=== PATIENT | male | born 1975 | race Caucasian/White ===

== ENCOUNTER 2019-03-28 18:57 | Inpatient (IN) | payer BC ==
[~2019-03-28] VITALS: Ht 165.1 cm; Wt 69.9 kg
[2019-03-28 19:05] VITALS: BP_SYST 141
[2019-03-28 19:58] LABS: CALCIUM 9.1 mg/dL (8.4-11.0); CREATININE 0.9 mg/dL (0.55-1.30); POTASSIUM 4.3 mmol/L (3.5-5.1)
[2019-03-28 19:59] VITALS: BP_SYST 148
[2019-03-28 20:00] LABS: BASOPHILS % (AUTO) 0.3 % (0.0-2.0); EOSINOPHILS # (AUTO) 0.1 K/uL (0.0-0.4); EOSINOPHILS % (AUTO) 0.5 % (0.0-4.0); HEMATOCRIT 49.6 % (36-54); HEMOGLOBIN 17.2 g/dL (14.0-18.0); LYMPHOCYTES # (AUTO) 2.3 K/uL (1.0-5.5); LYMPHOCYTES % (AUTO) 20.4 % (20.5-51.5); MEAN CORPUSCULAR HEMOGLOBIN 32 pg (27-31); MEAN CORPUSCULAR HGB CONC 35 % (32-36); MEAN CORPUSCULAR VOLUME 93 fL (79.0-98.0); MONOCYTES # (AUTO) 0.9 K/uL (0.0-1.0); MONOCYTES % (AUTO) 7.8 % (1.7-9.3); NEUTROPHILS # (AUTO) 8.1 K/uL (1.8-7.7); PLATELET COUNT (AUTO) 220 K/uL (130-430); RED BLOOD CELL COUNT(AUTO) 5.35 MIL/uL (4.2-6.2); RED CELL DISTRIBUTION WIDTH 13.1 % (9.0-15.0); WHITE BLOOD COUNT (AUTO) 11.4 K/uL (4.8-10.8)
[2019-03-28 20:03] LABS: PROTHROMBIN TIME 10.3 SECS (9.5-12.5)
[2019-03-28 20:04] LABS: ALBUMIN 3.9 g/dL (3.4-4.8); TOTAL BILIRUBIN 1.5 mg/dL (0.0-1.0)
[2019-03-28 20:08] LABS: BILIRUBIN,URINE NEGATIVE (NEGATIVE); CLARITY/URINE CLEAR (CLEAR); COLOR,URINE YELLOW (YELLOW); GLUCOSE,URINE NEGATIVE (NEGATIVE); KETONES,URINE NEGATIVE (NEGATIVE); LEUKOCYTE ESTERASE ,URINE NEGATIVE (NEGATIVE); NITRITE, URINE NEGATIVE (NEGATIVE); PROTEIN URINE NEGATIVE (NEGATIVE); UROBILINOGEN,URINE 0.2 (0.2-1.0)
[2019-03-28 20:09] LABS: BLOOD, URINE TRACE (NEGATIVE)
[2019-03-28 20:38] LABS: BACTERIA,URINE FEW /HPF (None Seen); MUCUS,URINE None Seen /LPF (None Seen); RBC,URINE 0-3 /HPF (0-3); WBC,URINE 0-3 /HPF (0-3)
[2019-03-28] MEDS ORDERED: ONDANSETRON HCL 4 MG/2 ML VIAL IVP ONE (21:00)
[2019-03-28] MEDS ORDERED: MORPHINE 2 MG/ML INJ. SYRINGE IVP ONE (21:00)
[2019-03-28] MEDS: POTASSIUM CHLORIDE 10 MEQ in D5/0.45 NS 1,000 ML IV SCH (21:32)
[2019-03-28] MEDS ORDERED: MORPHINE 2 MG/ML INJ. SYRINGE IVP PRN (21:45)
[2019-03-28] MEDS ORDERED: ONDANSETRON HCL 4 MG/2 ML VIAL IVP PRN (21:45)
[2019-03-28] MEDS ORDERED: KCL 10 mEq in D5/0.45NS 1000mL 1,000 ML IV ONE (22:31)
[2019-03-28] MEDS: FAMOTIDINE PF 20 MG/2 ML VIAL IVP SCH (22:33)
[2019-03-28] MEDS ORDERED: LEVOFLOXACIN 500 MG/D5W 100 ML IV ONE (22:33)
[2019-03-28] MEDS: LEVOFLOXACIN 500 MG/D5W 100 ML IV SCH (22:34)
[2019-03-29 00:19] VITALS: BP_SYST 112
[2019-03-29 07:44] VITALS: BP_SYST 120
[2019-03-29] MEDS: POTASSIUM CHLORIDE 10 MEQ in D5/0.45 NS 1,000 ML IV SCH (12:47)
[2019-03-29 13:00] VITALS: BP_SYST 115
[2019-03-29 16:13] VITALS: BP_SYST 113
[2019-03-29] MEDS ORDERED: fentaNYL CITRATE/PF 100 MCG/2 ML AMP IVP PRN ×2 (18:45)
[2019-03-29] MEDS ORDERED: ONDANSETRON HCL 4 MG/2 ML VIAL IVP PRN (18:45)
[2019-03-29] MEDS ORDERED: KETOROLAC TROMETHAMINE 30 MG VIAL IVP PRN (18:45)
[2019-03-29] MEDS ORDERED: ACETAMINOPHEN 325 MG TABLET PO PRN (19:30)
[2019-03-29] MEDS ORDERED: fentaNYL CITRATE/PF 100 MCG/2 ML AMP ONE ×2 (19:35→20:00)
[2019-03-29] MEDS ORDERED: LR 1,000 ML IV.SOLN IV ONE (19:35)
[2019-03-29] MEDS ORDERED: MIDAZOLAM HCL 5 MG/ML VIAL (VERSED) IV ONE (19:35)
[2019-03-29] MEDS ORDERED: NEOSTIGMINE METHYLSULFATE 1 MG/ML, 10 ML VIAL ONE (19:35)
[2019-03-29] MEDS ORDERED: SEVOFLURANE 15 MIN GAS INH ONE (19:35)
[2019-03-29] MEDS ORDERED: ROCURONIUM BROMIDE 10 MG/ML (ZEMURON) ONE (19:35)
[2019-03-29] MEDS ORDERED: NS IRRIG SOLN 1000 ML IR ONE (19:35)
[2019-03-29] MEDS ORDERED: CEFAZOLIN 2 GM IVPB PREMIX 50 ML IV ONE (19:35)
[2019-03-29] MEDS ORDERED: GLYCOPYRROLATE 0.2 MG/ML VIAL ONE (19:35)
[2019-03-29] MEDS ORDERED: PROPOFOL 200MG/ 20ML VIAL (DIPRIVAN) IV ONE (19:35)
[2019-03-29 20:30] VITALS: BP_SYST 162
[2019-03-29] MEDS ORDERED: HYDROmorphone 1 MG INJ. 1 MG/ML AMPUL IVP PRN (20:45)
[2019-03-29] MEDS: FAMOTIDINE PF 20 MG/2 ML VIAL IVP SCH (21:33)
[2019-03-29] MEDS: MORPHINE 4 MG/ML INJ. SYRINGE IVP PRN ×2 (21:34→23:57)
[2019-03-29] MEDS: LEVOFLOXACIN 500 MG/D5W 100 ML IV SCH (21:35)
[2019-03-29 23:58] VITALS: BP_SYST 150
[2019-03-30] MEDS: POTASSIUM CHLORIDE 10 MEQ in D5/0.45 NS 1,000 ML IV SCH ×2 (01:27→14:21)
[2019-03-30 04:00] VITALS: BP_SYST 141
[2019-03-30] MEDS: MORPHINE 4 MG/ML INJ. SYRINGE IVP PRN ×3 (05:12→23:09)
[2019-03-30 06:31] LABS: BASOPHILS % (AUTO) 0.2 % (0.0-2.0); EOSINOPHILS % (AUTO) 0.4 % (0.0-4.0); HEMATOCRIT 46.5 % (36-54); HEMOGLOBIN 16.3 g/dL (14.0-18.0); LYMPHOCYTES # (AUTO) 1.9 K/uL (1.0-5.5); LYMPHOCYTES % (AUTO) 19.6 % (20.5-51.5); MEAN CORPUSCULAR HEMOGLOBIN 33 pg (27-31); MEAN CORPUSCULAR HGB CONC 35 % (32-36); MEAN CORPUSCULAR VOLUME 93 fL (79.0-98.0); MONOCYTES # (AUTO) 0.9 K/uL (0.0-1.0); MONOCYTES % (AUTO) 9.3 % (1.7-9.3); NEUTROPHILS # (AUTO) 6.9 K/uL (1.8-7.7); NEUTROPHILS % (AUTO) 70.5 % (40.0-70.0); PLATELET COUNT (AUTO) 205 K/uL (130-430); RED BLOOD CELL COUNT(AUTO) 5.01 MIL/uL (4.2-6.2); RED CELL DISTRIBUTION WIDTH 12.9 % (9.0-15.0); WHITE BLOOD COUNT (AUTO) 9.9 K/uL (4.8-10.8)
[2019-03-30 06:45] LABS: CALCIUM 8.6 mg/dL (8.4-11.0); CREATININE 0.91 mg/dL (0.55-1.30); POTASSIUM 3.8 mmol/L (3.5-5.1)
[2019-03-30 06:59] LABS: ALBUMIN 3.2 g/dL (3.4-4.8); TOTAL BILIRUBIN 1.6 mg/dL (0.0-1.0)
[2019-03-30 08:11] VITALS: BP_SYST 126
[2019-03-30 12:40] VITALS: BP_SYST 128
[2019-03-30] MEDS: HYDROcodone/ACETAMIN 5-325 MG TAB (NORCO/ VICODIN) PO PRN ×2 (14:30→20:22)
[2019-03-30 17:28] VITALS: BP_SYST 128
[2019-03-30 20:15] VITALS: BP_SYST 127
[2019-03-30] MEDS: FAMOTIDINE PF 20 MG/2 ML VIAL IVP SCH (21:18)
[2019-03-30] MEDS: LEVOFLOXACIN 500 MG/D5W 100 ML IV SCH (22:58)
[2019-03-31 00:45] VITALS: BP_SYST 127
[2019-03-31] MEDS: POTASSIUM CHLORIDE 10 MEQ in D5/0.45 NS 1,000 ML IV SCH (01:39)
[2019-03-31 06:23] LABS: BASOPHILS % (AUTO) 0.3 % (0.0-2.0); EOSINOPHILS # (AUTO) 0.2 K/uL (0.0-0.4); EOSINOPHILS % (AUTO) 1.7 % (0.0-4.0); HEMATOCRIT 45.3 % (36-54); HEMOGLOBIN 15.7 g/dL (14.0-18.0); LYMPHOCYTES # (AUTO) 2.4 K/uL (1.0-5.5); MEAN CORPUSCULAR HEMOGLOBIN 32 pg (27-31); MEAN CORPUSCULAR HGB CONC 35 % (32-36); MEAN CORPUSCULAR VOLUME 93 fL (79.0-98.0); MONOCYTES % (AUTO) 10.2 % (1.7-9.3); NEUTROPHILS # (AUTO) 6.1 K/uL (1.8-7.7); NEUTROPHILS % (AUTO) 62.8 % (40.0-70.0); PLATELET COUNT (AUTO) 206 K/uL (130-430); RED BLOOD CELL COUNT(AUTO) 4.86 MIL/uL (4.2-6.2); RED CELL DISTRIBUTION WIDTH 12.8 % (9.0-15.0); WHITE BLOOD COUNT (AUTO) 9.8 K/uL (4.8-10.8)
[2019-03-31 06:42] LABS: CREATININE 0.93 mg/dL (0.55-1.30); POTASSIUM 4.1 mmol/L (3.5-5.1)
[2019-03-31 06:49] LABS: ALBUMIN 3.1 g/dL (3.4-4.8); TOTAL BILIRUBIN 1.5 mg/dL (0.0-1.0)
[2019-03-31 08:00] VITALS: BP_SYST 136
[2019-03-31 11:39] VITALS: BP_SYST 118
[2019-03-31 12:34] VITALS: BP_SYST 118
== END 2019-03-31 12:20 | disposition home or self-care (01) | DRG 419 ==
LOC: SED 18:57 → SMU 19:43
PROVIDERS: ADMIT Internal Medicine; ATTEND Internal Medicine
PROC: 0FT44ZZ Resection of Gallbladder, Percutaneous Endoscopic Approach (ICD-10-PCS; principal; 2019-03-29 17:30)
DX: K80.00 Calculus of gallbladder with acute cholecystitis without obstruction (principal); E80.6 Other disorders of bilirubin metabolism
CPT/HCPCS: 36415; 71045; 80053; 81000-TC; 85025; 85610-TC; 85730-TC; 86886; 86900; 86901; 87081; 88304; 93005; 99284; C1727; J0690; J1956; J2250; J2270; J2704; J2710; J3010; J3480; J3490; J7120